=== PATIENT | male | born 1975 | race Caucasian/White ===

== ENCOUNTER 2020-05-13 12:23 | Emergency (ER) | payer OTHER ==
[~2020-05-13] VITALS: Ht 190.5 cm; Wt 124.7 kg
[~2020-05-13 12:23] MED LIST: FUTURO RESTORI1 EACH MC; MOBIC15 MG
[2020-05-13 12:59] LABS: ABSOLUTE BASOPHILS 0.1 thou/uL (0.0-0.2); ABSOLUTE EOSINOPHILS 0.1 thou/uL (0.0-0.7); ABSOLUTE LYMPHOCYTES 0.7 thou/uL (0.8-5.3); ABSOLUTE MONOCYTES 0.9 thou/uL (0.0-1.2); ABSOLUTE NEUTROPHILS 7.4 thou/uL (1.6-8.1); BASOPHILS 0.8 %; EOSINOPHILS 1.2 %; HEMATOCRIT 43.2 % (42.0-52.0); HEMOGLOBIN 14.9 gm/dL (14.0-18.0); LYMPHOCYTES 7.8 %; MCH 29.9 pg (26.0-34.0); MCHC 34.4 g/dL (28.0-37.0); MCV 86.8 fL (80.0-100.0); MONOCYTES 9.4 %; MPV 7.6 fl. (7.2-11.1); NUCLEATED RBCS 0 /100WBC; PLATELET COUNT* 179 thou/uL (150-400); POLYS 80.8 %; RBC 4.98 mil/uL (4.50-6.00); RDW-CV 13.3 % (10.5-14.5); WBC 9.2 thou/uL (4.0-11.0)
[2020-05-13 13:04] LABS: CALCIUM 8.4 mg/dL (8.5-10.1); CREATININE 1.9 mg/dL (0.6-1.3); POTASSIUM 3.7 mmol/L (3.5-5.1)
[2020-05-13 13:08] LABS: ALBUMIN 3.7 g/dL (3.4-5.0)
[2020-05-13 13:28] LABS: URINE BILIRUBIN NEGATIVE (Negative); URINE BLOOD NEGATIVE (Negative); URINE CLARITY CLEAR; URINE COLOR YELLOW; URINE GLUCOSE-RANDOM NEGATIVE (Negative); URINE KETONES NEGATIVE (Negative); URINE LEUKOCYTES-REFLEX NEGATIVE (Negative); URINE NITRITE-REFLEX NEGATIVE (Negative); URINE PROTEIN NEGATIVE (Negative); URINE SPECIFIC GRAVITY 1.025 (1.005-1.030); URINE UROBILINOGEN 0.2 E.U./dl (0.2-1.0)
[2020-05-13] MEDS ORDERED: ONDANSETRON ODT4 MG PO (13:49)
[2020-05-13] MEDS ORDERED: HYDROCODON-ACE1 EAC7 PO (13:49)
[2020-05-13] MEDS ORDERED: FLOMAX0.4 MG PO (13:49)
[2020-05-13 14:16] VITALS: BP 145/95
--- NOTE | 2020-05-13 16:04 | EKG ---
[place] [address] ELECTROCARDIOGRAM REPORT Name: JAKUB THACKER Room: [facility]#: [id number] Admission: 05/13/20 Attend Phys: Discharge: 05/13/20 Date of : 79 Date of Service: 05/13/20 [facility] Report #: [id number] THIS REPORT FOR: //name// [facility] ED Test Date: 2020-05-13 Test Time: 12:57:42 Pat Name: JAKUB THACKER Department: Room: Gender: M [employer]: EMANUEL : 1975 Requested By: Chris Manzanares Order Number: [id number] MD: Ariel Rucker Measurements Intervals [place] Rate: 66 P: 17 [place]: 191 QRS: 16 QRSD: 101 T: 21 QT: 381 QTc: 400 Interpretive Statements Sinus rhythm ST elev, probable normal early repol pattern Compared to ECG 06/14/2015 23:25:38 ST (T wave) deviation now present Electronically Signed On 05-13-2020 16:03:48 CHEMICAL LAB TECHNICIAN by Ariel Rucker [email or web address] <ELECTRONICALLY SIGNED> By: Ariel Rucker MD, FACC 05/13/20 1603 [id number] Ariel [email or web address] MD, [facility] /EPI
== END 2020-05-13 14:18 | disposition home or self-care (01) ==
LOC: M.ERS 12:23
PROVIDERS: Physician Assistant
DX: N20.1 Calculus of ureter (principal); Z90.49 Acquired absence of other specified parts of digestive tract; Z90.89 Acquired absence of other organs